=== PATIENT | male | born 1950 | race Hispanic/Latino ===

== ENCOUNTER → 2018-12-29 | Outpatient (CLI) | payer MEDICARE | END | disposition home or self-care (01) | LOC: SHCH 12:42 | PROVIDERS: ATTEND Internal Medicine Cardiovascular Disease | DX: R25.2 Cramp and spasm (principal); Z95.1 Presence of aortocoronary bypass graft | CPT/HCPCS: 93925 ==

== ENCOUNTER → 2019-06-05 | Outpatient (CLI) | payer MEDICARE ==
--- NOTE | 2019-06-04 12:29 | NUR ---
PROCEDURE WAS CX AND RESCHEDULED FOR 06/05/19, R/T PT DRANK COFFEE THIS AM
[~2019-06-05] VITALS: Ht 167.6 cm; Wt 76.2 kg
[~2019-06-05] MED LIST: REGADENOSON 0.4 MG/5 ML PF SYG IVP SCH
== END | disposition home or self-care (01) ==
LOC: SHCH 06-04 08:39
PROVIDERS: ATTEND Internal Medicine Cardiovascular Disease
DX: R07.9 Chest pain, unspecified (principal)
CPT/HCPCS: 78452; 93017; 96374; A9500 ×2; J2785

== ENCOUNTER 2021-01-14 09:20 | Observation (INO) | payer MEDICARE ==
[~2021-01-14] VITALS: Ht 162.6 cm; Wt 59.0 kg
[2021-01-14 09:29] VITALS: BP 138/53
[2021-01-14] MEDS ORDERED: ASPIRIN 325MG EC TAB PO SCH (10:00)
[2021-01-14] MEDS ORDERED: NITROGLYCERIN 1GM OINT 1 INCH/1GM TD SCH (10:00)
[2021-01-14 10:04] LABS: BASOPHILS % (AUTO) 0.4 % (0.0-5.0); EOSINOPHILS % (AUTO) 0.5 % (0.0-8.0); HEMATOCRIT 37.6 % (42-54); LYMPHOCYTES % (AUTO) 16.1 % (21.0-51.0); MEAN CORPUSCULAR HEMOGLOBIN 30.9 pg (27.0-33.0); MEAN CORPUSCULAR HGB CONC 35.1 g/dL (32.0-36.0); MEAN CORPUSCULAR VOLUME 88.1 fL (79-99); MONOCYTES % (AUTO) 9.6 % (3.0-13.0); NEUTROPHILS % (AUTO) 73.3 % (40.0-77.0); PLATELET COUNT (AUTO) 147 K/uL (130-400); RED BLOOD CELL COUNT(AUTO) 4.27 MIL/uL (4.50-6.20); RED CELL DISTRIBUTION WIDTH 11.9 % (11.0-15.5); WHITE BLOOD COUNT (AUTO) 7.5 K/uL (4.8-10.8)
[2021-01-14 10:06] LABS: CREATININE 0.9 mg/dL (0.5-1.5); POTASSIUM 4.2 mmol/L (3.5-5.1)
[2021-01-14 10:07] LABS: INR 1.07 (0.85-1.15); PROTHROMBIN TIME 11.6 SEC (9.6-11.6)
[2021-01-14 10:11] LABS: ALBUMIN 3.8 g/dL (3.5-5.0); BILIRUBIN,TOTAL 0.5 mg/dL (0.2-1.0); TOTAL PROTEIN, SERUM 7.7 g/dL (6.0-8.3)
[2021-01-14 10:26] LABS: B-TYPE NATRIURETIC PEPTIDE 8 pg/mL (0-100)
[2021-01-14] MEDS ORDERED: ISOS30TA92 PO (11:19)
[2021-01-14] MEDS ORDERED: NITR0.4T50 SL (11:19)
[2021-01-14] MEDS ORDERED: ASPI-1197 PO (11:19)
[2021-01-14] MEDS ORDERED: CARV12.511 PO (11:19)
[2021-01-14] MEDS ORDERED: SUCR1TAB2 PO (11:19)
[2021-01-14] MEDS ORDERED: ROSU10TA28 PO (11:19)
[2021-01-14] MEDS ORDERED: ONDANSETRON 4MG INJ IV PRN (12:30)
[2021-01-14] MEDS ORDERED: ACETAMINOPHEN 325 MG TAB PO PRN ×2 (12:30)
[2021-01-14] MEDS: NITROGLYCERIN 1GM OINT 1 INCH/1GM TD SCH ×2 (12:30→21:09)
[2021-01-14] MEDS: SUCRALFATE 1 GM TABLET PO SCH ×3 (12:30→21:09)
[2021-01-14] MEDS ORDERED: LACTULOSE 20 GM/30 ML UDCUP PO PRN (12:30)
[2021-01-14 12:47] LABS: HEMOGLOBIN A1C 5.8 % (4.0-6.0)
[2021-01-14 12:48] LABS: MAGNESIUM 2.2 mg/dL (1.80-2.40); THYROID STIMULATING HORMONE 2.38 uIU/mL (0.36-3.74)
[2021-01-14 13:10] VITALS: BP 125/75
[2021-01-14 17:37] VITALS: BP 111/53
[2021-01-14 19:30] VITALS: BP 130/57
[2021-01-14] MEDS ORDERED: ATORVASTATIN 20 MG TABLET PO SCH (21:00)
[2021-01-14] MEDS ORDERED: METOPROLOL TARTRATE 25 MG TAB PO SCH (21:00)
[2021-01-15] VITALS (10 sets, daily range): BP systolic 97–137; BP diastolic 51–74
[2021-01-15] MEDS: NITROGLYCERIN 1GM OINT 1 INCH/1GM TD SCH ×2 (03:55→17:46)
[2021-01-15 05:31] LABS: BASOPHILS % (AUTO) 0.6 % (0.0-5.0); EOSINOPHILS % (AUTO) 13.5 % (0.0-8.0); HEMATOCRIT 37.8 % (42-54); LYMPHOCYTES % (AUTO) 18.3 % (21.0-51.0); MEAN CORPUSCULAR HEMOGLOBIN 30.7 pg (27.0-33.0); MEAN CORPUSCULAR HGB CONC 34.4 g/dL (32.0-36.0); MEAN CORPUSCULAR VOLUME 89.2 fL (79-99); MONOCYTES % (AUTO) 10.4 % (3.0-13.0); NEUTROPHILS % (AUTO) 56.9 % (40.0-77.0); PLATELET COUNT (AUTO) 125 K/uL (130-400); RED BLOOD CELL COUNT(AUTO) 4.24 MIL/uL (4.50-6.20); RED CELL DISTRIBUTION WIDTH 12.1 % (11.0-15.5)
[2021-01-15 05:53] LABS: CREATININE 0.9 mg/dL (0.5-1.5); POTASSIUM 3.8 mmol/L (3.5-5.1)
[2021-01-15] MEDS ORDERED: ASPIRIN 325 MG TABLET PO SCH (09:00)
[2021-01-15] MEDS ORDERED: PANTOPRAZOLE 40 MG TAB DR PO SCH (09:00)
[2021-01-15] MEDS ORDERED: ENOXAPARIN SODIUM 40 MG/0.4 ML SYRINGE SQ SCH (09:00)
[2021-01-15] MEDS ORDERED: CARVEDILOL 12.5 MG TABLET PO SCH ×2 (09:30→21:00)
[2021-01-15] MEDS: SUCRALFATE 1 GM TABLET PO SCH ×3 (09:30→17:46)
[2021-01-15] MEDS ORDERED: MIDAZOLAM HCL 1 MG/ML 2ML VIAL ONE (10:22)
[2021-01-15] MEDS ORDERED: NITROGLYCERIN 2 MG VIAL IV ONE (10:22)
[2021-01-15] MEDS ORDERED: HEPARIN 10,000 UNIT/10ML (1,000 UNIT/ML) VIAL ONE (10:22)
[2021-01-15] MEDS ORDERED: FENTANYL CITRATE PF 50 MCG/1 ML 2ML VIAL ONE (10:23)
[2021-01-15] MEDS ORDERED: LIDOCAINE HCL 400MG/20ML VIAL ONE (10:23)
[2021-01-15] MEDS ORDERED: IOHEXOL 350 MG/ML 100ML INFUS..BTL IV ONE (10:24)
[2021-01-15] MEDS ORDERED: IOHEXOL-350 50ML VIAL IV ONE (10:24)
[2021-01-15] MEDS ORDERED: IOHEXOL-350 75 ML VIAL IV ONE (11:12)
[2021-01-15] MEDS ORDERED: 0.9%NACL 1000ML 1,000 ML IV SCH (12:00)
[2021-01-15] MEDS ORDERED: PANT40TA PO (14:01)
[2021-01-15] MEDS ORDERED: ATORVASTATIN 20 MG TABLET PO SCH (21:00)
[2021-01-16] MEDS ORDERED: ASPIRIN 81MG CHEW TAB PO SCH (09:00)
[2021-01-16] MEDS ORDERED: ISOSORBIDE MONO 30MG SR TAB PO SCH (09:00)
== END 2021-01-15 14:05 | disposition home or self-care (01) ==
LOC: EDH 09:20 → EDHIP 12:04 → 4DH 01-15 13:03
PROVIDERS: ADMIT Internal Medicine; ATTEND Internal Medicine
DX: R07.89 Other chest pain (principal); I10 Essential (primary) hypertension; E78.00 Pure hypercholesterolemia, unspecified; E78.5 Hyperlipidemia, unspecified; K21.9 Gastro-esophageal reflux disease without esophagitis; I25.110 Atherosclerotic heart disease of native coronary artery with unstable angina pectoris; Z85.46 Personal history of malignant neoplasm of prostate; Z79.899 Other long term (current) drug therapy; Z98.890 Other specified postprocedural states; Z79.82 Long term (current) use of aspirin; Z95.1 Presence of aortocoronary bypass graft
CPT/HCPCS: 36415 ×2; 71045; 80048; 80053; 80061; 83036; 83735; 83880; 84443; 84484 ×3; 85025 ×2; 85610; 93005 ×3; 93455; 96372; 99285; C1760; C1769; C1894 ×2; G0378 ×26; J1644; J1650; J2250; J3010; J3490 ×2; Q9965; Q9967 ×2; 99156; 99157

== ENCOUNTER → 2022-06-07 | Outpatient (CLI) | payer MEDICARE ==
[~2022-06-07] MED LIST changes: +ASPI-1197 PO; +CARV12.511 PO; +ISOS30TA92 PO; +NITR0.4T50 SL; +PANT40TA PO; -REGADENOSON 0.4 MG/5 ML PF SYG IVP SCH; +ROSU10TA28 PO; +SUCR1TAB2 PO
[2022-06-07 12:11] LABS: POTASSIUM 4.5 mmol/L (3.5-5.1)
== END | disposition home or self-care (01) ==
LOC: LAB 10:07
PROVIDERS: ATTEND Internal Medicine Cardiovascular Disease
DX: I10 Essential (primary) hypertension (principal)
CPT/HCPCS: 36415; 80053

== ENCOUNTER → 2022-06-15 | Outpatient (CLI) | payer MEDICARE ==
[~2022-06-15] MED LIST changes: +IOHEXOL 350 MG/ML 100ML INFUS..BTL IV ONE
== END | disposition home or self-care (01) ==
LOC: RAH 10:11
PROVIDERS: ATTEND Internal Medicine Cardiovascular Disease
DX: I25.10 Atherosclerotic heart disease of native coronary artery without angina pectoris (principal); Z95.1 Presence of aortocoronary bypass graft
CPT/HCPCS: 75574; Q9967

== ENCOUNTER → 2023-05-18 | Outpatient (CLI) | payer MEDICARE ==
[~2023-05-18] MED LIST changes: +METOPROLOL TARTRATE 1 MG/ML 5ML VIAL IV ONE
== END | disposition home or self-care (01) ==
LOC: RAH 10:20
PROVIDERS: ATTEND Internal Medicine Cardiovascular Disease
DX: R07.9 Chest pain, unspecified (principal)
CPT/HCPCS: 75574; J3490; Q9967

== ENCOUNTER → 2023-10-04 | Outpatient (CLI) | payer MEDICARE ==
[~2023-10-04] MED LIST changes: -IOHEXOL 350 MG/ML 100ML INFUS..BTL IV ONE; -METOPROLOL TARTRATE 1 MG/ML 5ML VIAL IV ONE
[2023-10-04 22:17] VITALS: PULSE 67; RESP 15
[2023-10-04 22:35] VITALS: PULSE 66; RESP 17
[2023-10-04 23:02] VITALS: PULSE 62; RESP 13
[2023-10-04 23:31] VITALS: PULSE 74; RESP 14
[2023-10-05] VITALS (11 sets, daily range): PULSE 50–97; RESP 11–17
== END | disposition home or self-care (01) ==
LOC: SLP 20:11 → EEVIPCON 20:11
PROVIDERS: ATTEND Family Medicine
DX: G47.33 Obstructive sleep apnea (adult) (pediatric) (principal)
CPT/HCPCS: 95811

== ENCOUNTER 2023-12-30 06:56 | Day surgery (SDC) | payer MEDICARE ==
[2023-12-28 09:18] VITALS: BP 165/77; PULSE 65; RESP 18
[2023-12-28 09:18] LABS: BASOPHILS # (AUTO) 0.05 K/uL (0.00-0.20); BASOPHILS % (AUTO) 0.7 % (0.0-5.0); EOSINOPHILS # (AUTO) 0.16 K/uL (0.00-0.70); EOSINOPHILS % (AUTO) 2.4 % (0.0-8.0); HEMATOCRIT 43.5 % (42-54); IMMATURE GRANULOCYTE ABSOLUTE 0.01 K/uL (0-1); LYMPHOCYTES # (AUTO) 1.6 K/uL (1.0-4.8); LYMPHOCYTES % (AUTO) 24.1 % (21.0-51.0); MEAN CORPUSCULAR HEMOGLOBIN 30.2 pg (27.0-33.0); MEAN CORPUSCULAR HGB CONC 33.3 g/dL (32.0-36.0); MEAN CORPUSCULAR VOLUME 90.6 fL (79-99); MONOCYTES # (AUTO) 0.7 K/uL (0.1-1.0); MONOCYTES % (AUTO) 10.6 % (3.0-13.0); NEUTROPHILS # (AUTO) 4.1 K/uL (1.8-7.7); NEUTROPHILS % (AUTO) 62.1 % (40.0-77.0); PLATELET COUNT (AUTO) 130 K/uL (130-400); RED CELL DISTRIBUTION WIDTH 12.7 % (11.0-15.5); WHITE BLOOD COUNT (AUTO) 6.7 K/uL (4.8-10.8)
[2023-12-28 09:31] LABS: POTASSIUM 4.3 mmol/L (3.5-5.1)
[2023-12-28 09:50] LABS: B-TYPE NATRIURETIC PEPTIDE 7 pg/mL (0-100)
[2023-12-28 10:00] LABS: APPEARANCE,URINE CLEAR (CLEAR); BILIRUBIN,URINE NEGATIVE (NEGATIVE); COLOR,URINE LIGHT-YELLOW (YELLOW); GLUCOSE, URINE (UA) >=1000 mg/dL (NEGATIVE); KETONES,URINE NEGATIVE (NEGATIVE); LEUKOCYTE ESTERASE ,URINE NEGATIVE Leu/uL (NEGATIVE); NITRATE,URINE NEGATIVE (NEGATIVE); OCCULT BLOOD,URINE NEGATIVE (NEGATIVE); PROTEIN,URINE NEGATIVE (NEGATIVE); UROBILINOGEN,URINE 0.2 mg/dL (0.2-1.0)
[2023-12-28 10:01] LABS: INR 1.07 (0.85-1.15); PARTIAL THROMBOPLASTIN TIME 26.5 SEC (26.3-35.5); PROTHROMBIN TIME 11.3 SEC (9.6-11.6)
[2023-12-28 10:01] LABS: ADD UA MICROSCOPIC YES
[2023-12-28 10:03] LABS: RBC,URINE 0-1 /HPF (0-1); SQUAMOUS EPITHELIAL CELL,UR RARE /HPF (0-2); WBC,URINE 0-1 /HPF (0-1)
[~2023-12-30] VITALS: Ht 167.6 cm; Wt 75.1 kg
[~2023-12-30 06:56] MED LIST changes: -ROSU10TA28 PO; +ROSU10TA72 PO
[2023-12-30 07:00] VITALS: BP 152/79; PULSE 67; RESP 18
[2023-12-30] MEDS ORDERED: DAPA10TA PO (08:02)
[2023-12-30] MEDS ORDERED: FAMO40TA7 PO (08:02)
[2023-12-30] MEDS ORDERED: LOSA25TA41 PO (08:02)
[2023-12-30] MEDS ORDERED: MAGN250C PO (08:02)
[2023-12-30] MEDS ORDERED: LATA2.5D14 OP (08:02)
[2023-12-30] MEDS ORDERED: CALC-1125 PO (08:02)
[2023-12-30] MEDS ORDERED: MULT-1367 PO (08:02)
[2023-12-30] MEDS: 0.9%NACL 1000ML 1,000 ML IV ONE (08:12)
[2023-12-30] MEDS ORDERED: LIDOCAINE HCL 400MG/20ML VIAL ONE (08:39)
[2023-12-30] MEDS ORDERED: IOHEXOL 350 MG/ML 100ML INFUS..BTL IV ONE (08:39)
[2023-12-30] MEDS ORDERED: FENTANYL CITRATE PF 50 MCG/1 ML 2ML VIAL ONE (08:40)
[2023-12-30] MEDS ORDERED: NITROGLYCERIN 50MG VIAL ONE (08:40)
[2023-12-30] MEDS ORDERED: MIDAZOLAM HCL 1 MG/ML 2ML VIAL ONE (08:41)
[2023-12-30] MEDS ORDERED: IOHEXOL-350 50ML VIAL IV ONE (09:24)
[2023-12-30 10:15] VITALS: BP 146/63; PULSE 59; RESP 15
[2023-12-30 10:30] VITALS: BP 112/47; PULSE 60; RESP 16
[2023-12-30 10:45] VITALS: BP 105/53; PULSE 56; RESP 15
[2023-12-30 11:00] VITALS: BP 116/59; PULSE 57; RESP 15
== END 2023-12-30 11:09 | disposition home or self-care (01) ==
LOC: DAH 06:56
PROVIDERS: ATTEND Internal Medicine Cardiovascular Disease
DX: R07.89 Other chest pain (principal); I25.119 Atherosclerotic heart disease of native coronary artery with unspecified angina pectoris; R94.39 Abnormal result of other cardiovascular function study; I11.0 Hypertensive heart disease with heart failure; I50.40 Unspecified combined systolic (congestive) and diastolic (congestive) heart failure; E78.5 Hyperlipidemia, unspecified; G47.33 Obstructive sleep apnea (adult) (pediatric); Z99.89 Dependence on other enabling machines and devices; Z95.1 Presence of aortocoronary bypass graft; Z79.82 Long term (current) use of aspirin; Z79.899 Other long term (current) drug therapy; Z85.46 Personal history of malignant neoplasm of prostate; Z98.890 Other specified postprocedural states
CPT/HCPCS: 80048; 83880; 85025; 85610; 85730; 81001; 36415; 71045; 93005; 93459; C1769; C1894 ×2; C1760; Q9965 ×2; J3010; J3490 ×2; J7030; J2250; J1644; Q9967 ×2; A4215; A4222; A4221; A4663; A4216; A4606; A4223 ×3; 99156; 99157

== ENCOUNTER 2024-11-16 05:54 | Day surgery (SDC) | payer MEDICARE ==
[2024-11-14 12:12] LABS: BASOPHILS # (AUTO) 0.06 K/uL (0.00-0.20); EOSINOPHILS # (AUTO) 0.18 K/uL (0.00-0.70); EOSINOPHILS % (AUTO) 2.9 % (0.0-8.0); HEMATOCRIT 43.4 % (42-54); IMMATURE GRANULOCYTE ABSOLUTE 0.02 K/uL (0-1); LYMPHOCYTES # (AUTO) 1.8 K/uL (1.0-4.8); LYMPHOCYTES % (AUTO) 28.4 % (21.0-51.0); MEAN CORPUSCULAR HEMOGLOBIN 30.6 pg (27.0-33.0); MEAN CORPUSCULAR HGB CONC 33.4 g/dL (32.0-36.0); MEAN CORPUSCULAR VOLUME 91.6 fL (79-99); MONOCYTES # (AUTO) 0.6 K/uL (0.1-1.0); MONOCYTES % (AUTO) 10.2 % (3.0-13.0); NEUTROPHILS # (AUTO) 3.6 K/uL (1.8-7.7); NEUTROPHILS % (AUTO) 57.2 % (40.0-77.0); PLATELET COUNT (AUTO) 137 K/uL (130-400); RED BLOOD CELL COUNT(AUTO) 4.74 MIL/uL (4.50-6.20); RED CELL DISTRIBUTION WIDTH 13.1 % (11.0-15.5); WHITE BLOOD COUNT (AUTO) 6.3 K/uL (4.8-10.8)
[2024-11-14 12:18] VITALS: BP 179/81; PULSE 66; RESP 18; TEMP 97.5
[2024-11-14 12:20] LABS: INR 1.09 (0.85-1.15); PROTHROMBIN TIME 11.5 SEC (9.6-11.6)
[2024-11-14 12:21] LABS: PARTIAL THROMBOPLASTIN TIME 29.3 SEC (26.3-35.5)
[2024-11-14 12:22] LABS: POTASSIUM 5.4 mmol/L (3.5-5.1)
--- NOTE | 2024-11-14 12:35 | EKG ---
[facility] Test Date: 2024-11-14 Test Time: 12:01:21 Pat Name: MICHAEL BUCK Department: [facility] Room: Gender: M Educational Advisor: [id number] : 1950 Requested By: ROLANDO CHILDS Order Number: [id number] Reading MD: Kevyn Rendon Measurements Intervals [place] Rate: 62 P: 18 TX: 159 QRS: 3 QRSD: 98 T: -12 QT: 408 QTc: 416 Interpretive Statements Sinus rhythm Compared to ECG 12/28/2023 09:08:14 Ventricular premature complex(es) no longer present Electronically Signed On 11-14-2024 18:59:18 CDT by Kevyn Rendon Please click the below link to view image of tracing.
[~2024-11-16] VITALS: Ht 170.2 cm; Wt 77.9 kg
[2024-11-16] VITALS (9 sets, daily range): BP systolic 111–181; BP diastolic 49–91; PULSE 62–75; RESP 12–18; TEMP 97.2–97.9
[~2024-11-16 05:54] MED LIST changes: +CALC-1125 PO; +DAPA10TA PO; +EZET10TA48 PO; -ISOS30TA92 PO; +LOSA25TA41 PO; +MULT-1367 PO; -NITR0.4T50 SL; -PANT40TA PO; -ROSU10TA72 PO; +ROSU20TA98 PO; +SUCR1TAB PO; -SUCR1TAB2 PO
[2024-11-16] MEDS ORDERED: LIDOCAINE HCL 400MG/20ML VIAL ONE (07:26)
[2024-11-16] MEDS ORDERED: SODIUM BICARB 50MEQ 50ML VIAL 50 ML ONE (07:26)
[2024-11-16] MEDS ORDERED: HEParin-NS 1,000 UNIT/500 ML 500 ML IV ONE (07:26)
[2024-11-16] MEDS ORDERED: MIDAZOLAM HCL 1 MG/ML 2ML VIAL ONE ×3 (07:30→09:36)
[2024-11-16] MEDS ORDERED: FENTanyl CITRate PF 50 MCG/1 ML 2ML VIAL ONE (07:30)
[2024-11-16] MEDS ORDERED: LIDOCAINE HCL 1% MDV 50ML VIAL ONE (09:00)
[2024-11-16] MEDS ORDERED: IOHEXOL-350 50ML VIAL IV ONE (09:00)
[2024-11-16] MEDS ORDERED: BUPIvacaine/PF 0.25% 30ML VIAL IJ ONE (09:01)
[2024-11-16] MEDS ORDERED: ceFAZolin SODIUM 1 GM VIAL ONE (09:05)
[2024-11-16] MEDS ORDERED: TRAM50TA4 PO (10:58)
[2024-11-16] MEDS ORDERED: acetaMINOPHEN WITH coDEINE 1 TAB TAB PO PRN (11:00)
[2024-11-16] MEDS ORDERED: acetaMINOPHEN 500 MG TABLET PO PRN (11:00)
--- NOTE | 2024-11-16 13:39 | NUR ---
Dr Gaspar veiwed chest xray and comfirmed icd lead placement. Cleared by Dr Gaspar and pt okay to discharge.
--- NOTE | 2024-11-16 14:30 | HMCIMG ---
Exam Type: CHEST 1VW Clinical Information: s/p ICD Comparison: None Findings: There is cardiomegaly and there is status post median sternotomy. The lungs are clear of infiltrates. Left-sided cardiac pacemaker is noted with leads in place. Impression: Clear lungs.
== END 2024-11-16 14:00 | disposition home or self-care (01) ==
LOC: DAH 05:54
PROVIDERS: ATTEND Internal Medicine Cardiovascular Disease
DX: R55 Syncope and collapse (principal); I47.20 Ventricular tachycardia, unspecified; I49.01 Ventricular fibrillation; I34.0 Nonrheumatic mitral (valve) insufficiency; I10 Essential (primary) hypertension; I24.9 Acute ischemic heart disease, unspecified; I25.10 Atherosclerotic heart disease of native coronary artery without angina pectoris; E78.00 Pure hypercholesterolemia, unspecified; G47.33 Obstructive sleep apnea (adult) (pediatric); Z95.5 Presence of coronary angioplasty implant and graft; Z99.89 Dependence on other enabling machines and devices; Z79.899 Other long term (current) drug therapy; Z79.82 Long term (current) use of aspirin; Z98.890 Other specified postprocedural states
CPT/HCPCS: 80048; 85025; 85610; 85730; 36415; 93005; 33249; 93620; 71045; C1777; C1898; C1894 ×2; C1721; C1730 ×2; C1760 ×2; J3010; J0690; J3490 ×3; J0665; J2250 ×3; J1644; Q9967; A4215; A4222; A4221; A4663; A4216; A4606; A4223 ×3; 99156; 99157